=== PATIENT | female | born 1970 | race Two or more races ===

== ENCOUNTER 2018-01-31 12:32 | Emergency (ER) | payer OTHER ==
[~2018-01-31] VITALS: Ht 160 cm; Wt 61.2 kg
[2018-01-31] MEDS ORDERED: FLUO-120 PO (12:47)
[2018-01-31] MEDS ORDERED: METH2.5T PO (12:47)
[2018-01-31] MEDS ORDERED: TRIA15CR2 TP (12:47)
[2018-01-31] MEDS ORDERED: LORA5SOL7 PO (12:47)
[2018-01-31] MEDS ORDERED: LEVO112T5 PO (12:47)
--- NOTE | 2018-01-31 13:02 | NUR ---
Patient discharged to home in stable conditon. Written and verbal after care instructions given. Patient verbalizes understanding of instructions.PT WALKS IN STEADY GAIT. PT EUBREATHING, NO SIGN OF RESP DISTRESS OR SWALLOWING PROBLEM.
== END 2018-01-31 13:04 | disposition home or self-care (01) ==
LOC: ER 12:32
DX: L30.8 Other specified dermatitis (principal); E03.9 Hypothyroidism, unspecified; Z79.899 Other long term (current) drug therapy
CPT/HCPCS: 99283; A4663

== ENCOUNTER 2021-02-10 11:55 | Emergency (ER) | payer OTHER ==
[~2021-02-10] VITALS: Ht 162.6 cm; Wt 62.1 kg
[~2021-02-10 11:55] MED LIST: FLUO20CA42 PO; LEVO112T5 PO; LORA5SOL7 PO; METH2.5T PO; TRIA15CR2 TP
[2021-02-10] MEDS: IBUPROFEN 800 MG TABLET PO ONE (12:37)
--- NOTE | 2021-02-10 12:37 | NUR ---
PT IS IN ROOM #1B. DR LÓPEZ EVALUATED THE PT.
[2021-02-10] MEDS ORDERED: IBUPROFEN 800 MG TABLET ONE (12:41)
[2021-02-10] MEDS ORDERED: IBUP-1955 PO (14:04)
--- NOTE | 2021-02-10 14:14 | NUR ---
PT WAS D/C'd TO HOME. D/C INSTRUCTIONS GIVEN TO THE PT BY DR LÓPEZ.
[2021-02-10 14:15] VITALS: BP 145/89
== END 2021-02-10 14:17 | disposition home or self-care (01) ==
LOC: ER 11:55
DX: M50.123 Cervical disc disorder at C6-C7 level with radiculopathy (principal); E03.9 Hypothyroidism, unspecified; G43.909 Migraine, unspecified, not intractable, without status migrainosus; Z79.890 Hormone replacement therapy
CPT/HCPCS: 70450; 72125; A4663

== ENCOUNTER 2021-11-03 21:51 | Emergency (ER) | payer OTHER ==
[~2021-11-03] VITALS: Ht 162.6 cm; Wt 67.6 kg
[~2021-11-03 21:51] MED LIST changes: +IBUP-1955 PO
--- NOTE | 2021-11-03 22:13 | NUR ---
Patient walked into ER c/o N/V x3 days with melena. Patient is A/Ox4, no SOB, no CP, no distress noted
[2021-11-03] MEDS ORDERED: DIATR MEGLU/DIATRIZOATE SODIUM 30 ML BOTTLE ONE (23:06)
[2021-11-03] MEDS ORDERED: PANTOPRAZOLE SODIUM 40 MG VIAL ONE (23:10)
[2021-11-03 23:16] LABS: HEMATOCRIT 40.6 % (31.2-41.9); MEAN CORPUSCULAR HEMOGLOBIN 29.7 uug (24.7-32.8); MEAN CORPUSCULAR VOLUME 85.4 fL (75.5-95.3); PLATELET COUNT (AUTO) 146 K/uL (179-408)
[2021-11-03 23:23] LABS: *OCCULT BLOOD STOOL NEGATIVE (NEGATIVE)
[2021-11-03] MEDS: PANTOPRAZOLE SODIUM IV 80 MG in IV DEXTROSE 5% 100 ML IV ONE (23:25)
[2021-11-03] MEDS: ONDANSETRON 4 MG/2 ML VIAL IV ONE (23:30)
[2021-11-03] MEDS ORDERED: ONDANSETRON 4 MG/2 ML VIAL ONE (23:33)
[2021-11-03 23:37] LABS: CREATININE 1.1 mg/dL (0.6-1.3); POTASSIUM 3.7 mmol/L (3.5-5.1)
[2021-11-03 23:43] LABS: BILIRUBIN,DIRECT 0.2 mg/dL (0.0-0.2); BILIRUBIN,TOTAL 0.5 mg/dL (0.2-1.0)
--- NOTE | 2021-11-03 23:45 | NUR ---
patient went for CT
[2021-11-03] MEDS ORDERED: IV NORMAL SALINE 250 ML IV ONE (23:58)
[2021-11-03] MEDS ORDERED: SWABABLE VALVE TRANSFER SET EA MC ONE (23:58)
[2021-11-03] MEDS ORDERED: IOHEXOL 300MG/ML 100 ML INFUS..BTL ONE (23:58)
--- NOTE | 2021-11-04 00:16 | NUR ---
Patient back from CT
--- NOTE | 2021-11-04 00:44 | NUR ---
Patient walked to the bathroom with steady gait
[2021-11-04] MEDS ORDERED: ONDA4TAB5 PO (02:05)
[2021-11-04] MEDS ORDERED: HYDR-4209 PO (02:05)
--- NOTE | 2021-11-04 03:15 | NUR ---
Patient discharged to home in stable condition. Written and verbal after care instructions given. Patient verbalizes understanding of instructions. Stressed follow up or return to ER for worsening s/s. Patient is A/Ox4, no SOB, no CP, no distress noted.
[2021-11-04 03:22] VITALS: BP 132/78
== END 2021-11-04 03:22 | disposition home or self-care (01) ==
LOC: ER 21:54
DX: R10.13 Epigastric pain (principal); R11.0 Nausea; E03.9 Hypothyroidism, unspecified; N95.9 Unspecified menopausal and perimenopausal disorder; Z90.49 Acquired absence of other specified parts of digestive tract; Z86.69 Personal history of other diseases of the nervous system and sense organs; Z79.890 Hormone replacement therapy
CPT/HCPCS: 36415 ×2; 71045; 74177; 80048; 80076; 82270; 83690; 84484 ×2; 85025; 85730; 86850; 86900; 86901; 93005; 96374; 96375; 99285; C9113; J2405; J7060 ×2; Q9967; A4663; Q9963

== ENCOUNTER 2022-09-13 09:50 | Emergency (ER) | payer OTHER ==
[~2022-09-13] VITALS: Ht 165.1 cm; Wt 72.6 kg
[~2022-09-13 09:50] MED LIST changes: +HYDR-4209 PO; +ONDA4TAB5 PO
--- NOTE | 2022-09-13 10:00 | NUR ---
52 years old female alert, oriented x4 presents to er c/o nausea vomiting after starting a new medication.
[2022-09-13] MEDS ORDERED: ONDANSETRON 4 MG/2 ML VIAL IV ONE (10:15)
[2022-09-13] MEDS ORDERED: IV NORMAL SALINE 1000 ML BAG IV ONE (10:15)
[2022-09-13 10:26] LABS: HEMATOCRIT 41.8 % (31.2-41.9); MEAN CORPUSCULAR HEMOGLOBIN 28.4 uug (24.7-32.8); MEAN CORPUSCULAR VOLUME 83.9 fL (75.5-95.3); PLATELET COUNT (AUTO) 181 K/uL (179-408)
[2022-09-13] MEDS ORDERED: ONDANSETRON 4 MG/2 ML VIAL ONE (10:29)
[2022-09-13] MEDS ORDERED: LIDOCAINE VISCUS 2% 15 ML UDC MM ONE (10:30)
[2022-09-13] MEDS ORDERED: MAG HYDROX/AL HYDROX/SIMETH 30 ML LIQUID UDC PO ONE (10:30)
[2022-09-13] MEDS ORDERED: MAG HYDROX/AL HYDROX/SIMETH 30 ML LIQUID UDC ONE (10:30)
[2022-09-13] MEDS ORDERED: LIDOCAINE VISCUS 2% 15 ML UDC ONE (10:30)
[2022-09-13] MEDS ORDERED: FAMOTIDINE. 20 MG/2 ML VIAL IV ONE ×2 (10:30)
[2022-09-13 10:33] LABS: *BILIRUBIN,URIN 2+ (NEGATIVE); *BLOOD, URINE 2+ (NEGATIVE); *CLARITY,URINE CLEAR (CLEAR); *COLOR,URINE YELLOW (YELLOW); *KETONES,URINE 1+ (NEGATIVE); LEUKOCYTE ESTERASE ,URINE NEGATIVE (NEGATIVE); NITRITE, URINE NEGATIVE (NEGATIVE); PH,URINE 5.5 (5.0-8.0); UGLUCOSE NEGATIVE (NEGATIVE)
[2022-09-13] MEDS ORDERED: ONDA4TAB5 PO (10:33)
[2022-09-13] MEDS ORDERED: FAMO-132 PO (10:33)
[2022-09-13 10:44] LABS: BILIRUBIN,DIRECT 0.2 mg/dL (0.0-0.2); BILIRUBIN,TOTAL 0.7 mg/dL (0.2-1.0); CREATININE 1.1 mg/dL (0.6-1.3); POTASSIUM 4.6 mmol/L (3.5-5.1); TOTAL PROTEIN, SERUM 7.8 g/dL (6.4-8.2)
--- NOTE | 2022-09-13 11:46 | NUR ---
patient reassess condition stable d/c home with instructions after care reviewed understood left er ambulatory with steady gait.
[2022-09-13 11:53] VITALS: BP 123/80
[2022-09-13 16:49] LABS: WBC,URINE 0-3 /HPF (0-3)
== END 2022-09-13 11:54 | disposition home or self-care (01) ==
LOC: ER 09:50
DX: R10.13 Epigastric pain (principal); R11.2 Nausea with vomiting, unspecified; Z90.49 Acquired absence of other specified parts of digestive tract; E03.9 Hypothyroidism, unspecified; F90.9 Attention-deficit hyperactivity disorder, unspecified type; Z78.0 Asymptomatic menopausal state; Z79.890 Hormone replacement therapy; Z79.899 Other long term (current) drug therapy
CPT/HCPCS: 99284; 96374; 96361; 96375; 80076; 80048; 81001; 83690; 85025; 36415; J3490; J2405; J7040; A4663

== ENCOUNTER 2023-05-12 22:55 | Emergency (ER) | payer OTHER ==
[~2023-05-12] VITALS: Ht 162.6 cm; Wt 56.7 kg
[~2023-05-12 22:55] MED LIST changes: +FAMO-132 PO
[2023-05-12] MEDS ORDERED: TETRACAINE HCL 0.5% OPHT DROP 2 ML BOTTLE ONE (23:20)
[2023-05-12] MEDS ORDERED: FLUORESCEIN SODIUM 1 MG STRIP ONE (23:20)
[2023-05-12] MEDS ORDERED: TONOPEN 1 EA EA MC ONE (23:30)
[2023-05-12] MEDS ORDERED: TETRACAINE HCL 0.5% OPHT DROP 2 ML BOTTLE OP ONE (23:30)
[2023-05-12] MEDS ORDERED: FLUORESCEIN SODIUM 1 MG STRIP OP ONE (23:30)
[2023-05-12] MEDS ORDERED: MOXI3DRO13 OP (23:54)
[2023-05-12] MEDS ORDERED: TRIF7.5D5 EACHEYE (23:54)
[2023-05-12] MEDS ORDERED: NAPR-1196 PO (23:54)
[2023-05-13 00:05] VITALS: BP 140/108; O2SAT 100
[2023-05-13] MEDS ORDERED: MOXI3DRO13 OP (00:24)
[2023-05-13] MEDS ORDERED: [UNRECOGNIZED DRUG - CODE] EACHEYE (00:24)
[2023-05-13] MEDS ORDERED: NAPR-1192 PO (00:24)
== END 2023-05-13 00:26 | disposition home or self-care (01) ==
LOC: ER 22:58
DX: H16.003 Unspecified corneal ulcer, bilateral (principal); H16.9 Unspecified keratitis; E03.9 Hypothyroidism, unspecified; Z90.49 Acquired absence of other specified parts of digestive tract; Z79.1 Long term (current) use of non-steroidal anti-inflammatories (NSAID); Z79.899 Other long term (current) drug therapy
CPT/HCPCS: A4606; A4663

== ENCOUNTER 2023-11-09 18:19 | Emergency (ER) | payer OTHER ==
[~2023-11-09] VITALS: Ht 162.6 cm; Wt 52.6 kg
[~2023-11-09 18:19] MED LIST changes: +MOXI3DRO13 OP; +NAPR-1192 PO; +NAPR-1196 PO; +TRIF7.5D5 EACHEYE; +[UNRECOGNIZED DRUG - CODE] EACHEYE
[2023-11-09] MEDS ORDERED: LISD10CA PO (18:39)
[2023-11-09] MEDS ORDERED: LEVO75TA7 PO (18:39)
[2023-11-09] MEDS ORDERED: BUSP5TAB3 PO (18:39)
[2023-11-09] MEDS ORDERED: BUPR-319 PO (18:39)
[2023-11-09] MEDS ORDERED: ASPIRIN 81 MG TAB.CHEW ONE (18:40)
[2023-11-09] MEDS: ASPIRIN 81 MG TAB.CHEW PO ONE (18:41)
[2023-11-09 18:52] LABS: BASOPHILS % (AUTO) 0.6 % (0.0-2.0); EOSINOPHILS # (AUTO) 0.3 K/uL (0.0-0.7); EOSINOPHILS % (AUTO) 7.6 % (0.0-7.0); HEMATOCRIT 43.4 % (31.2-41.9); HEMOGLOBIN 14.6 g/dL (10.9-14.3); LYMPHOCYTES # (AUTO) 0.7 K/uL (0.8-4.8); LYMPHOCYTES % (AUTO) 21.5 % (20.5-51.5); MEAN CORPUSCULAR HEMOGLOBIN 28.4 uug (24.7-32.8); MEAN CORPUSCULAR HGB CONC 34 g/dL (32.3-35.6); MEAN CORPUSCULAR VOLUME 84.7 fL (75.5-95.3); MONOCYTES # (AUTO) 0.4 K/uL (0.1-1.30); MONOCYTES % (AUTO) 11.5 % (0.0-11.0); NEUTROPHILS # (AUTO) 1.9 K/uL (1.8-8.9); NEUTROPHILS % (AUTO) 58.8 % (38.5-71.5); PLATELET COUNT (AUTO) 168 K/uL (179-408); RED BLOOD CELL COUNT(AUTO) 5.13 MIL/uL (3.63-4.92); RED CELL DISTRIBUTION WIDTH 13.4 % (12.3-17.7); WHITE BLOOD COUNT (AUTO) 3.3 K/uL (3.8-11.8)
[2023-11-09 19:05] LABS: CALCIUM 9.5 mg/dL (8.5-10.1); CARBON DIOXIDE 31 mmol/L (21-32); CHLORIDE 105 mmol/L (98-107); GLUCOSE 104 mg/dL (74-106); POTASSIUM 3.8 mmol/L (3.5-5.1); SODIUM SERUM 142 mmol/L (136-145); UREA NITROGEN, BLOOD 16 mg/dL (7-18)
[2023-11-09 19:29] LABS: ALANINE AMINOTRANSFERASE 33 U/L (14-59); ALBUMIN 3.7 g/dL (3.4-5.0); ALKALINE PHOSPHATASE 68 U/L (50-136); ASPARTATE AMINOTRANSFERASE 34 U/L (15-37); BILIRUBIN,DIRECT 0.1 mg/dL (0.0-0.2); BILIRUBIN,TOTAL 0.4 mg/dL (0.2-1.0); NT-PRO BNP 28 pg/mL (0-125); TOTAL PROTEIN, SERUM 7.4 g/dL (6.4-8.2)
[2023-11-09] MEDS ORDERED: IBUP-1490 PO (20:58)
[2023-11-09 22:20] VITALS: BP 135/88; TEMP 98.6; O2SAT 100
== END 2023-11-09 22:21 | disposition home or self-care (01) ==
LOC: ER 18:21
DX: R07.89 Other chest pain (principal); E03.9 Hypothyroidism, unspecified; Z98.890 Other specified postprocedural states; Z79.899 Other long term (current) drug therapy
CPT/HCPCS: 36415; 71045; 84484; 85025; 93005; A4606; A4663

== ENCOUNTER 2023-11-24 21:16 | Emergency (ER) | payer BC, OTHER ==
[~2023-11-24] VITALS: Ht 160 cm; Wt 52.6 kg
[~2023-11-24 21:16] MED LIST changes: +BUPR-319 PO; +BUSP5TAB3 PO; -FAMO-132 PO; -FLUO20CA42 PO; -HYDR-4209 PO; +IBUP-1490 PO; -IBUP-1955 PO; -LEVO112T5 PO; +LEVO75TA7 PO; +LISD10CA PO; -LORA5SOL7 PO; -METH2.5T PO; -MOXI3DRO13 OP; -NAPR-1192 PO; -NAPR-1196 PO; -ONDA4TAB5 PO; -TRIA15CR2 TP; -TRIF7.5D5 EACHEYE; -[UNRECOGNIZED DRUG - CODE] EACHEYE
[2023-11-24] MEDS ORDERED: AMOX-430 PO (21:42)
[2023-11-24] MEDS ORDERED: ACETAMINOPHEN ES 500 MG TABLET ONE (21:45)
[2023-11-24] MEDS ORDERED: PIPERACILLIN/TAZOBACTAM/D5W 50 ML IV ONE (21:46)
[2023-11-24] MEDS: ACETAMINOPHEN ES 500 MG TABLET PO ONE (21:53)
[2023-11-24] MEDS: PIPERACILLIN SODIUM/TAZOBACTAM 3.375 G in IV DEXTROSE 5% 50 ML IV ONE (21:53)
[2023-11-24 22:50] VITALS: BP 140/62; O2SAT 100
== END 2023-11-24 22:46 | disposition home or self-care (01) ==
LOC: ER 21:18
DX: S61.231A Puncture wound without foreign body of left index finger without damage to nail, initial encounter (principal); E03.9 Hypothyroidism, unspecified; Z79.899 Other long term (current) drug therapy; W55.01XA Bitten by cat, initial encounter; Y93.89 Activity, other specified; Y92.89 Other specified places as the place of occurrence of the external cause; Y99.8 Other external cause status
CPT/HCPCS: 99284; 96365; J2543; A4606; A4663; A9150